=== PATIENT | male | born 1975 | race Caucasian/White ===

== ENCOUNTER 2017-01-30 12:36 | Inpatient (IN) | payer OTHER ==
[2017-01-30 15:29] VITALS: BMI 32.8
[2017-01-30] MEDS ORDERED: IBUPROFEN 400 MG TABLET (FP) PO PRN (18:22)
[2017-01-30] MEDS ORDERED: chlordiazePOXIDE HCL 25 MG CAPSULE PO PRN (18:22)
[2017-01-30] MEDS ORDERED: MENTHOL/PHENOL 1 EACH UD MM PRN (18:22)
[2017-01-30] MEDS ORDERED: MAGNESIUM CITRATE 300 ML BOTTLE PO PRN (18:22)
[2017-01-30] MEDS ORDERED: P-EPHED 60MG/TRIPROLIDI 2.5MG TABLET PO PRN (18:22)
[2017-01-30] MEDS ORDERED: MAG HYDROX/AL HYDROX/SIMETH 30 ML UNIT-DOSE CUP PO PRN (18:22)
[2017-01-30] MEDS ORDERED: MAGNESIUM HYDROX 2400MG/30ML ORAL SUSPENSION 30 ML CUP PO PRN (18:22)
[2017-01-30] MEDS ORDERED: ACETAMINOPHEN 325 MG TABLET (FP) PO PRN (18:22)
[2017-01-30] MEDS ORDERED: LOPERAMIDE HCL 2 MG CAPSULE PO PRN (18:22)
[2017-01-30] MEDS ORDERED: NICOTINE POLACRILEX 2 MG GUM BC PRN (18:22)
[2017-01-30] MEDS ORDERED: guaiFENesin/D-METHORPHAN HB 10 ML UNIT-DOSE CUPS PO PRN (18:22)
[2017-01-30] MEDS ORDERED: hydrOXYzine PAMOATE 50 MG CAPSULE (FP) PO PRN (18:22)
--- NOTE | 2017-01-30 18:22 | HP ---
CIWA Score - CIWA Score Nausea/Vomitin Muscle Tremors: 3 Anxiety: 3 Agitation: 3 Paroxysmal Sweats: 3 Orientation: 0-Oriented Tacttile Disturbances: 1-Very Mild Itch/Numbness Auditory Disturbances: 0-None Visual Disturbances: 0-None Headache: 1-Very Mild CIWA-Ar Total Score: 17 Admission [facility] Chief Complaint: alcohol withdrawal sx Allergies/Adverse Reactions: Allergies Allergy/AdvReac Type Severity Reaction Status Date / Time No Known Allergies Allergy Verified 01/30/17 16:38 History of Present Illness: 41 yo w h/o chronic opioid dependence on suboxone for many years 16mg daily, but has been recently decreasing dose from 16mg to 12mg, did nto take medication today. started drinking heavily and injecting cocaine, daily use 1 month, brought him in fro treatment. when he does not drink has Alcohol withdrawal sx - no h/o sieuzres, no DTS. PMHX Hep c+, treated and cleared virus , anxiety, depression and insomnia. thirsty. no suicidal ideation or suicide attempts no h/o OD Exam Limitations: No Limitations - Ebola screening Have you traveled outside of the country in the last 21 days: No (N) Have you had contact with anyone from an Ebola affected area: No Have you been sick,other than usual withdrawal symptoms: No Do you have a fever: No - Review of Systems Constitutional: Chills, Diaphoresis, Changes in sleep, Weakness, Unintentional Wgt. Loss EENT: reports: No Symptoms Reported Respiratory: reports: No Symptoms reported Cardiac: reports: No Symptoms Reported GI: reports: Constipated, Nausea, Poor Appetite, Poor Fluid Intake, Indigestion , Abdominal cramping : reports: No Symptoms Reported Musculoskeletal: reports: No Symptoms Reported Integumentary: reports: Flushing, Sweating Neuro: reports: Numbness, Paresthesia, Tingling, Tremors, Weakness Endocrine: reports: Flushing, Increased Thirst Hematology: reports: No Symptoms Reported Psychiatric: reports: Judgement Intact, Mood/Affect Appropiate, Orientated x3, Anxious, Depressed Other Systems: Reviewed and Negative Patient History - Patient Medical History Hx Anemia: No Hx Asthma: No Hx Chronic Obstructive Pulmonary Disease (COPD): No Hx Cancer: No Hx Cardiac Disorders: No Hx Congestive Heart Failure: No Hx Hypertension: No Hx Hypercholesterolemia: No Hx Pacemaker: No HX Cerebrovascular Accident: No Hx Seizures: No Hx Dementia: No Hx Diabetes: No Hx Gastrointestinal Disorders: No Hx Liver Disease: No Hx Genitourinary Disorders: No Hx Sexually Transmitted Disorders: No Hx Renal Disease (ESRD): No Hx Thyroid Disease: No Hx Human Immunodeficiency Virus (HIV): No Hx Hepatitis C: Yes (cleared virus with treeatment) Hx Depression: Yes Hx Suicide Attempt: No Hx Bipolar Disorder: No Hx Schizophrenia: No - Patient Surgical History Past Surgical History: No Hx Neurologic Surgery: No Hx Cataract Extraction: No Hx Cardiac Surgery: No Hx Lung Surgery: No Hx Breast Surgery: No Hx Breast Biopsy: No Hx Abdominal Surgery: No Hx Appendectomy: No Hx Cholecystectomy: No Hx Genitourinary Surgery: No Hx Section: No Hx Orthopedic Surgery: No Anesthesia Reaction: No - PPD History Previous Implant?: Yes Documented Results: Negative w/o proof PPD to be Administered?: Yes - Reproductive History Patient is a Female of Child Bearing Age (11 -55 yrs old): No Patient : No - Smoking Cessation Smoking history: Current every day smoker Have you smoked in the past 12 months: Yes Aproximately how many cigarettes per day: 3 Hx Chewing Tobacco Use: No Initiated information on smoking cessation: Yes 'Breaking Loose' booklet given: 01/30/17 - Substance & Tx. History Hx Alcohol Use: Yes Hx Substance Use: Yes Substance Use Type: Alcohol, Cocaine, Heroin, Opiates Hx Substance Use Treatment: Yes (on suboxone) - Substances Abused Alcohol Route: Oral Frequency: Daily Amount used: LIQUOR- 3 PINTS, BEER- 1 SIX PACK Age of first use: 25 Date of Last Use: 01/29/17 Cocaine Route: Injection Frequency: Daily Amount used: 8 BAGS Age of first use: 30 Date of Last Use: 01/30/17 Family Disease History - Family Disease History Family Disease History: Diabetes: Father (alcoholic), Heart Disease: Father, Other: Father Admission Physical Exam BHS - Vital Signs Vital Signs: Vital Signs - 24 hr 01/30/17 15:24 Temperature 97.0 F L Pulse Rate 78 Respiratory 20 Rate Blood Pressure 132/73 - Physical General Appearance: Yes: Nourished, Appropriately Dressed, Disheveled, Mild Distress, Tremorous, Irritable, Sweating, Anxious HEENTM: Yes: EOMI, Hearing grossly Normal, Normal ENT Inspection, Normocephalic , Normal Voice, TIARA, Pharynx Normal Respiratory: Yes: Within Normal Limits, Chest Non-Tender, Lungs Clear, Normal Breath Sounds, No Respiratory Distress, No Accessory Muscle Use Neck: Yes: Within Normal Limits, No masses,lesions,Nodules, Supple, Trachea in good position Breast: Yes: Breast Exam Deferred Cardiology: Yes: Within Normal Limits, Regular Rhythm, Regular Rate, S1, S2 Abdominal: Yes: Normal Bowel Sounds, Non Tender, Flat, Soft, Increased Bowel Sounds Genitourinary: Yes: Within Normal Limits Back: Yes: Within Normal Limits, Normal Inspection Musculoskeletal: Yes: Within Normal Limits, full range of Motion, Gait Steady, Pelvis Stable Extremities: Yes: Normal Capillary Refill, Normal Range of Motion, Non-Tender, Tremors Neurological: Yes: credit card associate II-XII NML intact, Fully Oriented, Alert, Motor Strength 5/5, Depressed Affect Integumentary: Yes: Normal Color, Warm, Diaphoresis, Track Anderson (cocaine injection left anteror cubital fossa, erythema and swelling no abscess noted, mild cellultis) Lymphatic: Yes: Within Normal Limits - Addiitonal Findings: withdrawal sx - Diagnostic (1) Opioid dependence on agonist therapy Current Visit: Yes Status: Acute (2) Cellulitis Current Visit: Yes Status: Acute (3) Alcohol dependence with uncomplicated withdrawal Current Visit: Yes Status: Acute (4) Cocaine dependence Current Visit: Yes Status: Acute (5) Depression Current Visit: Yes Status: Acute (6) Dehydration Current Visit: Yes Status: Acute Cleared for Admission [facility] - Detox or Rehab [facility] Level of Care: Medically Managed Detox Regimen/Protocol: Librium [facility] Breath Alcohol Content Breath Alcohol Content: 0 Urine Drug Screen - Results Drug Screen Negative: No Urine Drug Screen Results: JUAN-Cocaine
[2017-01-30] MEDS ORDERED: chlordiazePOXIDE HCL 25 MG CAPSULE PO ONE (19:00)
[2017-01-30] MEDS: BUPRENORPHINE HCL/NALOXONE 12 MG-3 MG SL FILM PACKET SL SCH (19:07)
[2017-01-30] MEDS: NICOTINE 14 MG/24 HOURS TOPICAL PATCH TD SCH (19:10)
[2017-01-30] MEDS: chlordiazePOXIDE HCL 25 MG CAPSULE PO SCH (22:26)
[2017-01-30] MEDS: THIAMINE HCL 100 MG TABLET (FP) PO SCH (22:26)
[2017-01-30] MEDS: CEPHALEXIN MONOHYDRATE 500 MG CAPSULE (UD) PO SCH (22:26)
[2017-01-30 23:16] LABS: URINE APPEARANCE CLEAR; URINE BILIRUBIN NEGATIVE (NEGATIVE); URINE BLOOD NEGATIVE (NEGATIVE); URINE COLOR LTYELLOW; URINE GLUCOSE (UA) NEGATIVE (NEGATIVE); URINE KETONE NEGATIVE (NEGATIVE); URINE LEUK ESTERASE NEGATIVE (NEGATIVE); URINE NITRITE NEGATIVE (NEGATIVE); URINE PROTEIN NEGATIVE (NEGATIVE); URINE UROBILINOGEN NEGATIVE mg/dL (0.2-1.0)
[2017-01-31] MEDS: chlordiazePOXIDE HCL 25 MG CAPSULE PO SCH ×4 (05:57→22:14)
[2017-01-31 09:36] LABS: MCHC 34.3 g/dl (32.0-35.9); MEAN CELL VOLUME 87.5 fl (80-96); MEAN PLT VOLUME 7.9 fl (7.5-11.1); PLATELET COUNT 265 K/MM3 (134-434); RDW 12.6 % (11.9-15.9); WHITE BLOOD COUNT 3.9 K/mm3 (4.0-10.0)
[2017-01-31 10:05] LABS: ALBUMIN 3.3 g/dl (3.4-5.0); ALK PHOS 55 U/L (45-117); ANION GAP 6 (8-16); BILIRUBIN,TOTAL 0.3 mg/dL (0.2-1.0); CALCIUM 9.1 mg/dL (8.5-10.1); CO2 31 mmol/L (21-32); GLUCOSE,RANDOM 85 mg/dL (74-106); SGOT/AST 17 U/L (15-37); SGPT/ALT 44 U/L (12-78); TOT PROT 6.9 g/dl (6.4-8.2)
[2017-01-31] MEDS: CEPHALEXIN MONOHYDRATE 500 MG CAPSULE (UD) PO SCH ×2 (10:30→22:14)
[2017-01-31] MEDS: PRENATAL VITAMINS W/ FOLIC ACID TABLET (FP) PO SCH (10:30)
[2017-01-31] MEDS: NICOTINE 14 MG/24 HOURS TOPICAL PATCH TD SCH (10:30)
[2017-01-31] MEDS: BUPRENORPHINE HCL/NALOXONE 12 MG-3 MG SL FILM PACKET SL SCH (10:30)
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
[2017-01-31 10:57] LABS: SICKLE CELL SCREEN NEGATIVE (NEGATIVE)
[2017-01-31] MEDS ORDERED: ONDANSETRON *ODT* 4 MG TABLET SL PRN (12:01)
[2017-01-31 12:32] LABS: URINE LEUK ESTERASE Negative (NEGATIVE)
[2017-01-31 12:47] LABS: HIV 1 & 2 AB NEGATIVE; HIV 1 AGp24 NEGATIVE
--- NOTE | 2017-01-31 16:01 | PN ---
S CIWA - CIWA Score Nausea/Vomitin Muscle Tremors: 4-Moderate,w/Arms Extend Anxiety: 3 Agitation: 3 Paroxysmal Sweats: 3 Orientation: 0-Oriented Tacttile Disturbances: 0-None Auditory Disturbances: 2-Mild Harshness/Frighten Visual Disturbances: 1-Very Mild Sensitivity Headache: 0-None Present CIWA-Ar Total Score: 19 BHS Progress Note (SOAP) Subjective: Tremors, Body Aches, Nausea, Sweating. Objective: PT. A & O X 3, OBSERVED AMBULATING ON UNIT. NO ACUTE DISTRESS. 01/31/17 16:00 Vital Signs Temperature 97.2 F L 01/31/17 15:06 Pulse Rate 80 01/31/17 15:06 Respiratory Rate 18 01/31/17 15:06 Blood Pressure 135/79 01/31/17 15:06 O2 Sat by Pulse Oximetry (%) Laboratory Tests 01/30/17 01/31/17 01/31/17 21:07 07:50 07:50 WBC 3.9 L RBC 4.63 Hgb 13.9 Hct 40.5 MCV 87.5 MCH 30.0 MCHC 34.3 RDW 12.6 Plt Count 265 MPV 7.9 Sickle Cell Screen Negative Sodium Potassium Chloride Carbon Dioxide Anion Gap BUN Creatinine Creat Clearance w eGFR Random Glucose Calcium Total Bilirubin AST ALT Alkaline Phosphatase Total Protein Albumin Urine Color Ltyellow Urine Appearance Clear Urine pH 6.0 Ur Specific [place] 1.011 Urine Protein Negative Urine Glucose (UA) Negative Urine Ketones Negative Urine Blood Negative Urine Nitrite Negative Urine Bilirubin Negative Urine Urobilinogen Negative Ur Leukocyte Esterase Negative RPR Titer HIV 1&2 Antibody Screen Negative HIV P24 Antigen Negative 01/31/17 01/31/17 07:50 07:50 WBC RBC Hgb Hct MCV MCH MCHC RDW Plt Count MPV Sickle Cell Screen Sodium 141 Potassium 4.0 Chloride 104 Carbon Dioxide 31 Anion Gap 6 L BUN 18 Creatinine 1.0 Creat Clearance w eGFR > 60 Random Glucose 85 Calcium 9.1 Total Bilirubin 0.3 AST 17 ALT 44 Alkaline Phosphatase 55 Total Protein 6.9 Albumin 3.3 L Urine Color Urine Appearance Urine pH Ur Specific [place] Urine Protein Urine Glucose (UA) Urine Ketones Urine Blood Urine Nitrite Urine Bilirubin Urine Urobilinogen Ur Leukocyte Esterase RPR Titer Nonreactive HIV 1&2 Antibody Screen HIV P24 Antigen LABS NOTED. Assessment: 01/31/17 16:01 WITHDRAWAL SYMPTOMS. Plan: CONTINUE DETOX.
[2017-01-31] MEDS ORDERED: QUEtiapine FUMARATE 200 MG TABLET PO SCH (22:00)
[2017-01-31] MEDS: QUEtiapine FUMARATE 300 MG TABLET PO SCH (22:14)
[2017-01-31] MEDS: THIAMINE HCL 100 MG TABLET (FP) PO SCH (22:15)
[2017-02-01] MEDS: chlordiazePOXIDE HCL 25 MG CAPSULE PO SCH ×3 (06:09→17:58)
--- NOTE | 2017-02-01 08:49 | EKG ---
Test Reason : Blood Pressure : / mmHG Vent. Rate : 075 BPM Atrial Rate : 075 BPM P-R Int : 126 ms QRS Dur : 084 ms QT Int : 408 ms P-R-T Axes : 073 052 023 degrees QTc Int : 455 ms NORMAL SINUS RHYTHM MINIMAL VOLTAGE CRITERIA FOR LVH, MAY BE NORMAL VARIANT BORDERLINE ECG NO PREVIOUS ECGS AVAILABLE Confirmed by EMMETT COYNE MD ([id number]) on 02/01/2017 8:48:29 AM Referred By: Confirmed By:EMMETT COYNE MD
--- NOTE | 2017-02-01 08:55 | EKG ---
Test Reason : Blood Pressure : / mmHG Vent. Rate : 053 BPM Atrial Rate : 053 BPM P-R Int : 126 ms QRS Dur : 088 ms QT Int : 452 ms P-R-T Axes : 073 060 029 degrees QTc Int : 424 ms SINUS BRADYCARDIA WITH SINUS ARRHYTHMIA MINIMAL VOLTAGE CRITERIA FOR LVH, MAY BE NORMAL VARIANT WITH REPOLARIZATION ABNORMALITY WHEN COMPARED WITH ECG OF 30-JAN-2017 20:17, NO SIGNIFICANT CHANGE WAS FOUND Confirmed by STANFORD VIEIRA, EMMETT (2016) on 02/01/2017 8:54:41 AM Referred By: Confirmed By:EMMETT COYNE MD
[2017-02-01] MEDS: PRENATAL VITAMINS W/ FOLIC ACID TABLET (FP) PO SCH (10:22)
[2017-02-01] MEDS: BENZTROPINE MESYLATE 1 MG TABLET (FP) PO SCH (10:22)
[2017-02-01] MEDS: SERTRALINE HCL 50 MG TABLET (FP) PO SCH (10:22)
[2017-02-01] MEDS: BUPRENORPHINE HCL/NALOXONE 12 MG-3 MG SL FILM PACKET SL SCH (10:22)
[2017-02-01] MEDS: CEPHALEXIN MONOHYDRATE 500 MG CAPSULE (UD) PO SCH ×2 (10:22→22:36)
[2017-02-01] MEDS: NICOTINE 14 MG/24 HOURS TOPICAL PATCH TD SCH (10:23)
--- NOTE | 2017-02-01 16:51 | PN ---
S CIWA - CIWA Score Nausea/Vomitin Muscle Tremors: 3 Anxiety: 3 Agitation: 3 Paroxysmal Sweats: 3 Orientation: 0-Oriented Tacttile Disturbances: 1-Very Mild Itch/Numbness Auditory Disturbances: 0-None Visual Disturbances: 0-None Headache: 1-Very Mild CIWA-Ar Total Score: 17 S Progress Note (SOAP) Subjective: Tremor, interrupted sleep, nausea Objective: 02/01/17 16:50 Last Vital Signs Temp Pulse Resp BP Pulse Ox 97.7 F 90 18 149/80 02/01/17 14:27 02/01/17 14:27 02/01/17 14:27 02/01/17 14:27 Laboratory Tests 01/30/17 01/31/17 01/31/17 21:07 07:50 07:50 WBC 3.9 L RBC 4.63 Hgb 13.9 Hct 40.5 MCV 87.5 MCH 30.0 MCHC 34.3 RDW 12.6 Plt Count 265 MPV 7.9 Sickle Cell Screen Negative Sodium Potassium Chloride Carbon Dioxide Anion Gap BUN Creatinine Creat Clearance w eGFR Random Glucose Calcium Total Bilirubin AST ALT Alkaline Phosphatase Total Protein Albumin Urine Color Ltyellow Urine Appearance Clear Urine pH 6.0 Ur Specific [place] 1.011 Urine Protein Negative Urine Glucose (UA) Negative Urine Ketones Negative Urine Blood Negative Urine Nitrite Negative Urine Bilirubin Negative Urine Urobilinogen Negative Ur Leukocyte Esterase Negative RPR Titer HIV 1&2 Antibody Screen Negative HIV P24 Antigen Negative 01/31/17 01/31/17 07:50 07:50 WBC RBC Hgb Hct MCV MCH MCHC RDW Plt Count MPV Sickle Cell Screen Sodium 141 Potassium 4.0 Chloride 104 Carbon Dioxide 31 Anion Gap 6 L BUN 18 Creatinine 1.0 Creat Clearance w eGFR > 60 Random Glucose 85 Calcium 9.1 Total Bilirubin 0.3 AST 17 ALT 44 Alkaline Phosphatase 55 Total Protein 6.9 Albumin 3.3 L Urine Color Urine Appearance Urine pH Ur Specific [place] Urine Protein Urine Glucose (UA) Urine Ketones Urine Blood Urine Nitrite Urine Bilirubin Urine Urobilinogen Ur Leukocyte Esterase RPR Titer Nonreactive HIV 1&2 Antibody Screen HIV P24 Antigen Labs noted Assessment: 02/01/17 16:50 Withdrawal symptoms Plan: Continue detox
[2017-02-01] MEDS: THIAMINE HCL 100 MG TABLET (FP) PO SCH (22:36)
[2017-02-01] MEDS: QUEtiapine FUMARATE 300 MG TABLET PO SCH (22:36)
[2017-02-01] MEDS: chlordiazePOXIDE 5 MG CAPSULE PO SCH (22:36)
[2017-02-02] MEDS: chlordiazePOXIDE 5 MG CAPSULE PO SCH ×3 (05:53→17:20)
[2017-02-02] MEDS: PRENATAL VITAMINS W/ FOLIC ACID TABLET (FP) PO SCH (10:40)
[2017-02-02] MEDS: SERTRALINE HCL 50 MG TABLET (FP) PO SCH (10:40)
[2017-02-02] MEDS: BENZTROPINE MESYLATE 1 MG TABLET (FP) PO SCH (10:40)
[2017-02-02] MEDS: NICOTINE 14 MG/24 HOURS TOPICAL PATCH TD SCH (10:40)
[2017-02-02] MEDS: CEPHALEXIN MONOHYDRATE 500 MG CAPSULE (UD) PO SCH ×2 (10:40→22:26)
[2017-02-02] MEDS: BUPRENORPHINE HCL/NALOXONE 12 MG-3 MG SL FILM PACKET SL SCH (10:40)
--- NOTE | 2017-02-02 13:51 | PN ---
BHS Progress Note (SOAP) Subjective: C/O TREMORS,SWEATS,"BAD DREAMS-NOT SPECIFIC", INTERMITTENT SLEEP. Objective: 02/02/17 13:51 Vital Signs Temperature 98.4 F 02/02/17 09:37 Pulse Rate 92 H 02/02/17 09:37 Respiratory Rate 18 02/02/17 09:37 Blood Pressure 143/77 02/02/17 09:37 O2 Sat by Pulse Oximetry (%) Laboratory Last Values WBC 3.9 K/mm3 (4.0-10.0) L 01/31/17 07:50 RBC 4.63 M/mm3 (4.00-5.60) 01/31/17 07:50 Hgb 13.9 GM/dL (11.7-16.9) 01/31/17 07:50 Hct 40.5 % (35.4-49) 01/31/17 07:50 MCV 87.5 fl (80-96) 01/31/17 07:50 MCH 30.0 pg (25.7-33.7) 01/31/17 07:50 MCHC 34.3 g/dl (32.0-35.9) 01/31/17 07:50 RDW 12.6 % (11.9-15.9) 01/31/17 07:50 Plt Count 265 K/MM3 (134-434) 01/31/17 07:50 MPV 7.9 fl (7.5-11.1) 01/31/17 07:50 Sickle Cell Screen Negative (NEGATIVE) 01/31/17 07:50 Sodium 141 mmol/L (136-145) 01/31/17 07:50 Potassium 4.0 mmol/L (3.5-5.1) 01/31/17 07:50 Chloride 104 mmol/L (98-107) 01/31/17 07:50 Carbon Dioxide 31 mmol/L (21-32) 01/31/17 07:50 Anion Gap 6 (8-16) L 01/31/17 07:50 BUN 18 mg/dL (7-18) 01/31/17 07:50 Creatinine 1.0 mg/dL (0.7-1.3) 01/31/17 07:50 Creat Clearance w eGFR > 60 (>60) 01/31/17 07:50 Random Glucose 85 mg/dL (74-106) 01/31/17 07:50 Calcium 9.1 mg/dL (8.5-10.1) 01/31/17 07:50 Total Bilirubin 0.3 mg/dL (0.2-1.0) 01/31/17 07:50 AST 17 U/L (15-37) 01/31/17 07:50 ALT 44 U/L (12-78) 01/31/17 07:50 Alkaline Phosphatase 55 U/L (45-117) 01/31/17 07:50 Total Protein 6.9 g/dl (6.4-8.2) 01/31/17 07:50 Albumin 3.3 g/dl (3.4-5.0) L 01/31/17 07:50 Urine Color Ltyellow 01/30/17 21:07 Urine Appearance Clear 01/30/17 21:07 Urine pH 6.0 (5.0-8.0) 01/30/17 21:07 Ur Specific [place] 1.011 (1.001-1.035) 01/30/17 21:07 Urine Protein Negative (NEGATIVE) 01/30/17 21:07 Urine Glucose (UA) Negative (NEGATIVE) 01/30/17 21:07 Urine Ketones Negative (NEGATIVE) 01/30/17 21:07 Urine Blood Negative (NEGATIVE) 01/30/17 21:07 Urine Nitrite Negative (NEGATIVE) 01/30/17 21:07 Urine Bilirubin Negative (NEGATIVE) 01/30/17 21:07 Urine Urobilinogen Negative mg/dL (0.2-1.0) 01/30/17 21:07 Ur Leukocyte Esterase Negative (NEGATIVE) 01/30/17 21:07 RPR Titer Nonreactive (NONREACTIVE) 01/31/17 07:50 HIV 1&2 Antibody Screen Negative 01/31/17 07:50 HIV P24 Antigen Negative 01/31/17 07:50 Assessment: 02/02/17 13:51 WITHDRAWAL SX Plan: CONTINUE DETOX
[2017-02-02] MEDS: chlordiazePOXIDE HCL 10 MG CAPSULE PO SCH (22:26)
[2017-02-02] MEDS: THIAMINE HCL 100 MG TABLET (FP) PO SCH (22:26)
[2017-02-02] MEDS: QUEtiapine FUMARATE 300 MG TABLET PO SCH (22:26)
[2017-02-03] MEDS: chlordiazePOXIDE HCL 10 MG CAPSULE PO SCH (06:06)
[2017-02-03 09:18] VITALS: BP 135/87; PULSE 76; TEMP 97.2
[2017-02-03] MEDS: SERTRALINE HCL 50 MG TABLET (FP) PO SCH (09:28)
[2017-02-03] MEDS: CEPHALEXIN MONOHYDRATE 500 MG CAPSULE (UD) PO SCH (09:28)
[2017-02-03] MEDS: NICOTINE 14 MG/24 HOURS TOPICAL PATCH TD SCH (09:28)
[2017-02-03] MEDS: BUPRENORPHINE HCL/NALOXONE 12 MG-3 MG SL FILM PACKET SL SCH (09:28)
[2017-02-03] MEDS: BENZTROPINE MESYLATE 1 MG TABLET (FP) PO SCH (09:28)
[2017-02-03] MEDS: PRENATAL VITAMINS W/ FOLIC ACID TABLET (FP) PO SCH (09:28)
--- NOTE | 2017-02-03 15:16 | DS ---
[facility] Detox Discharge Summary Admission Date: 01/30/17 Discharge Date: 02/03/17 - History Present History: Alcohol Dependence, Cocaine Dependence, Opioid Dependence Additional Comments: PATIENT GOING HOME SO THAT HE MAY RETURN TO WORK. PATIENT REPORTS THAT HE WILL RESUME OUTPATIENT SUPPORT GROUP MEETINGS ONCE HE SETTLES IN BACK AT HOME. PATIENT ALSO ADVISED TO FOLLOW-UP WITH MEDICAL PROVIDER DR. DUDLEY ( [place], [place], [place] FOR FOLLOW-UP ASSESSMENT FOR HISTORY OF SUBOXONE MAINTENANCE THERAPY. PATIENT WAS DISCHARGED FROM DETOX UNIT IN STABLE MEDICAL CONDITION. Pertinent Past History: Hep C (treated), Depression, Suboxone Maintenance Therapy, Dehydration, Cellulitis, Nicotine Dependence. - Physical Exam Results Vital Signs: Vital Signs Temperature 97.2 F L 02/03/17 09:18 Pulse Rate 76 02/03/17 09:18 Respiratory Rate 18 02/03/17 09:18 Blood Pressure 135/87 02/03/17 09:18 O2 Sat by Pulse Oximetry (%) Pertinent Admission Physical Exam Findings: WITHDRAWAL SYMPTOMS. Laboratory Tests 01/30/17 01/31/17 01/31/17 21:07 07:50 07:50 WBC 3.9 L RBC 4.63 Hgb 13.9 Hct 40.5 MCV 87.5 MCH 30.0 MCHC 34.3 RDW 12.6 Plt Count 265 MPV 7.9 Sickle Cell Screen Negative Sodium Potassium Chloride Carbon Dioxide Anion Gap BUN Creatinine Creat Clearance w eGFR Random Glucose Calcium Total Bilirubin AST ALT Alkaline Phosphatase Total Protein Albumin Urine Color Ltyellow Urine Appearance Clear Urine pH 6.0 Ur Specific [place] 1.011 Urine Protein Negative Urine Glucose (UA) Negative Urine Ketones Negative Urine Blood Negative Urine Nitrite Negative Urine Bilirubin Negative Urine Urobilinogen Negative Ur Leukocyte Esterase Negative RPR Titer HIV 1&2 Antibody Screen Negative HIV P24 Antigen Negative 01/31/17 01/31/17 07:50 07:50 WBC RBC Hgb Hct MCV MCH MCHC RDW Plt Count MPV Sickle Cell Screen Sodium 141 Potassium 4.0 Chloride 104 Carbon Dioxide 31 Anion Gap 6 L BUN 18 Creatinine 1.0 Creat Clearance w eGFR > 60 Random Glucose 85 Calcium 9.1 Total Bilirubin 0.3 AST 17 ALT 44 Alkaline Phosphatase 55 Total Protein 6.9 Albumin 3.3 L Urine Color Urine Appearance Urine pH Ur Specific [place] Urine Protein Urine Glucose (UA) Urine Ketones Urine Blood Urine Nitrite Urine Bilirubin Urine Urobilinogen Ur Leukocyte Esterase RPR Titer Nonreactive HIV 1&2 Antibody Screen HIV P24 Antigen LABS NOTED. - Treatment Hospital Course: Detox Protocol Followed, Detoxed Safely, Responded well, Discharged Condition Good Patient has Accepted a Rehab Referral to: PT WILL GOING HOME TO RETURN TO WORK, WILL ATTEND OUTPATIENT SUPPORT GROUP. - Medication Discharge Medications: Ambulatory Orders Quetiapine Fumarate [Seroquel -] 200 mg PO HS #30 tab 01/31/17 - Diagnosis (1) Alcohol dependence with uncomplicated withdrawal Status: Acute (2) Cocaine dependence Status: Acute Qualifiers: Substance use status: uncomplicated Qualified Code(s): F14.20 - Cocaine dependence, uncomplicated (3) Dehydration Status: Acute (4) Opioid dependence on agonist therapy Status: Chronic (5) Cellulitis Status: Acute Qualifiers: Site of cellulitis: unspecified site Qualified Code(s): L03.90 - Cellulitis , unspecified (6) Depression Status: Acute Qualifiers: Depression Type: unspecified Qualified Code(s): F32.9 - Major depressive disorder, single episode, unspecified (7) Hepatitis C Status: Chronic Qualifiers: Viral hepatitis chronicity: chronic Hepatic coma status: without hepatic coma Qualified Code(s): B18.2 - Chronic viral hepatitis C (8) MDD (major depressive disorder), recurrent episode Status: Chronic Qualifiers: Major depression episode severity: unspecified Qualified Code(s): F33.9 - Major depressive disorder, recurrent, unspecified (9) Nicotine dependence Status: Chronic Qualifiers: Nicotine product type: cigarettes Substance use status: in withdrawal Qualified Code(s): F17.213 - Nicotine dependence, cigarettes, with withdrawal - AMA Did Patient Leave Against Medical Advice: No
== END 2017-02-03 10:15 | disposition home or self-care (01) | DRG 774 ==
LOC: YASAS 12:36 → Y3N 17:42
PROVIDERS: ADMIT Internal Medicine; ATTEND Internal Medicine
PROC: HZ2ZZZZ Detoxification Services for Substance Abuse Treatment (ICD-10-PCS; principal; 2017-01-30)
DX: F10.230 Alcohol dependence with withdrawal, uncomplicated (principal); F14.20 Cocaine dependence, uncomplicated; F17.210 Nicotine dependence, cigarettes, uncomplicated; F25.0 Schizoaffective disorder, bipolar type; F32.9 Major depressive disorder, single episode, unspecified; L03.114 Cellulitis of left upper limb; E86.0 Dehydration; B18.2 Chronic viral hepatitis C; Z91.5 Personal history of self-harm
CPT/HCPCS: 36415; 80053; 81003; 85027; 85660; 86593; 87389; 93005; 93010

== ENCOUNTER 2017-08-08 12:54 | Emergency (ER) | payer OTHER ==
[2017-08-08 13:19] VITALS: BP 125/74; PULSE 62; TEMP 96.8; BMI 29.2
--- NOTE | 2017-08-08 13:58 | PDOC ---
History of Present Illness - General Chief Complaint: Injury Stated Complaint: GLASS ON FOOT Time Seen by Provider: 08/08/17 13:45 History Source: Patient - History of Present Illness Occurred: reports: other Lower Extremity Pain Location: right: foot Past History - Past Medical History Allergies/Adverse Reactions: Allergies Allergy/AdvReac Type Severity Reaction Status Date / Time No Known Allergies Allergy Verified 08/08/17 13:19 Home Medications: Ambulatory Orders Benztropine Mesylate [Cogentin -] 1 mg PO DAILY 08/07/17 Buprenorphine/Naloxone [Suboxone 8Mg/2Mg Sl Film -] 1 each SL BID 08/07/17 Bupropion HCl [Bupropion HCl Sr] 150 mg PO DAILY 08/07/17 Quetiapine Fumarate [Seroquel -] 300 mg PO HS 08/07/17 Sertraline HCl [Zoloft] 100 mg PO DAILY 08/07/17 Anemia: No Asthma: No Cancer: No Cardiac Disorders: No CVA: No COPD: No CHF: No Dementia: No Diabetes: No GI Disorders: No Disorders: No HTN: No Hypercholesterolemia: No Kidney Stones: No Liver Disease: No Psychiatric Problems: Yes (etoh and cocaine abuse) Seizures: No Thyroid Disease: No - Surgical History Abdominal Surgery: No Appendectomy: No Cardiac Surgery: No Cholecystectomy: No Lung Surgery: No Neurologic Surgery: No Orthopedic Surgery: No - Reproductive History Testicular Surgery: No - Suicide/Smoking/Psychosocial Hx Smoking History: Current every day smoker Have you smoked in the past 12 months: Yes Number of Cigarettes Smoked Daily: 20 Information on smoking cessation initiated: No 'Breaking Loose' booklet given: 08/07/17 Hx Alcohol Use: No Drug/Substance Use Hx: No Substance Use Type: Alcohol, Cocaine Hx Substance Use Treatment: Yes Review of Systems - Review of Systems Constitutional: No: Chills, Fever *Physical Exam - Vital Signs Last Vital Signs Temp Pulse Resp BP Pulse Ox 96.8 F L 62 18 125/74 100 08/08/17 12:55 08/08/17 12:55 08/08/17 12:55 08/08/17 12:55 08/08/17 12:55 - Physical Exam General Appearance: Yes: Appropriately Dressed. No: Apparent Distress HEENT: positive: Normal Voice Neck: positive: Supple Respiratory/Chest: negative: Respiratory Distress Musculoskeletal: positive: Other (hyperkeratotic papule w/ central core to plantar aspect near base of R 5th metatarsal c/w corn) Integumentary: positive: Dry, Warm Neurologic: positive: Alert, Normal Mood/Affect ED Treatment Course - RADIOLOGY Radiology Studies Ordered: Category Date Time Status FOOT-RIGHT [RAD] Stat Radiology 08/08/17 13:45 Ordered Medical Decision Making - Medical Decision Making 08/08/17 13:53 41 yo M, polysubstance abuse, HCV, smoker, currently in detox at [facility] and sent over for evaluation of R foot pain x 1 month Pt denies any injuries to me but there is a report from [facility] that pt states he might have stepped on glass 1 month ago. Pt well janis and stable w/ 1 discrete corn near base or R 5th metatarsal. Xray r/o fb and dc w/ podiatry f/u. 08/08/17 14:25 Xray neg for fb. Pt stable for dc back to [facility] *DC/Admit/Observation/Transfer Diagnosis at time of Disposition: Callus of foot - Discharge Dispostion Disposition: HOME Condition at time of disposition: Good - Referrals Referrals: Ruel Gomes MD [Staff Physician] - - Patient Instructions Printed Discharge Instructions: Calluses and Corns Additional Instructions: You have a foot corn and will need follow up with podiatry for treatment Your xray was negative for and foreign bodies Take tylenol as needed for pain - Post Discharge Activity
[2017-08-08] MEDS ORDERED: IBUPROFEN 400 MG TABLET (FP) PO ONE ×2 (13:59→14:06)
== END 2017-08-08 14:30 | disposition home or self-care (01) ==
LOC: JER 12:54
DX: L84 Corns and callosities (principal); F10.10 Alcohol abuse, uncomplicated; F14.10 Cocaine abuse, uncomplicated; F17.210 Nicotine dependence, cigarettes, uncomplicated; B18.2 Chronic viral hepatitis C
CPT/HCPCS: 73630-TC-RT-FY; 99282-25

== ENCOUNTER 2017-08-11 14:46 | Inpatient (IN) | payer OTHER ==
[2017-08-11] MEDS ORDERED: MAGNESIUM HYDROX 2400MG/30ML ORAL SUSPENSION 30 ML CUP PO PRN (15:14)
[2017-08-11] MEDS ORDERED: MAG HYDROX/AL HYDROX/SIMETH 30 ML UNIT-DOSE CUP PO PRN (15:14)
[2017-08-11] MEDS ORDERED: P-EPHED 60MG/TRIPROLIDI 2.5MG TABLET PO PRN (15:14)
[2017-08-11] MEDS ORDERED: MAGNESIUM CITRATE 300 ML BOTTLE PO PRN (15:14)
[2017-08-11] MEDS ORDERED: ACETAMINOPHEN 325 MG TABLET (FP) PO PRN (15:14)
[2017-08-11] MEDS ORDERED: hydrOXYzine PAMOATE 50 MG CAPSULE (FP) PO PRN (15:14)
[2017-08-11] MEDS ORDERED: guaiFENesin/D-METHORPHAN HB 10 ML UNIT-DOSE CUPS PO PRN (15:14)
[2017-08-11] MEDS ORDERED: LOPERAMIDE HCL 2 MG CAPSULE PO PRN (15:14)
[2017-08-11] MEDS ORDERED: NICOTINE POLACRILEX 4 MG GUM BUC PRN (15:14)
[2017-08-11] MEDS ORDERED: MENTHOL/PHENOL 1 EACH UD MM PRN (15:14)
--- NOTE | 2017-08-11 15:23 | HP ---
[facility] Rehab Assess/Revision - Admission History Admitted to Rehab from: [facility] [place] Date of Admission to Rehab: 08/11/17 - Findings Detox History & Physical reviewed: Yes Concur with findings: Yes Comments/Additional Findings: PT COMPLETED DETOX TODAY IN [address] [place] [address] AND REFERRED TO REHAB FOR AFTERCARE. PT WILL CONTINUE WITH SUBOXONE DIRECTED AND GO BACK TO PCP AT [facility] FOR CONTINUING CARE AFTER REHAB.
[2017-08-11] MEDS: NICOTINE 21 MG/24 HOURS TOPICAL PATCH TD SCH (18:47)
[2017-08-11] MEDS: QUEtiapine FUMARATE 300 MG TABLET PO SCH (21:12)
[2017-08-11] MEDS: BUPRENORPHINE/NALOXONE 8 MG/2 MG FILM PACKET SL SCH (21:12)
[2017-08-11] MEDS: THIAMINE HCL 100 MG TABLET (FP) PO SCH (21:12)
[2017-08-11] MEDS ORDERED: MELATONIN 5 MG TABLETS PO PRN (22:00)
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
[2017-08-12] MEDS ORDERED: BENZTROPINE MESYLATE 1 MG TABLET (FP) PO SCH (10:00)
[2017-08-12] MEDS ORDERED: SERTRALINE HCL 50 MG TABLET (FP) PO SCH (10:00)
[2017-08-12] MEDS: PRENATAL VITAMINS W/ FOLIC ACID TABLET (FP) PO SCH (10:12)
[2017-08-12] MEDS: BENZTROPINE MESYLATE 1 MG TABLET (FP) PO SCH (10:13)
[2017-08-12] MEDS: BUPRENORPHINE/NALOXONE 8 MG/2 MG FILM PACKET SL SCH ×2 (10:13→21:08)
[2017-08-12] MEDS: SERTRALINE HCL 50 MG TABLET (FP) PO SCH (10:13)
[2017-08-12] MEDS: NICOTINE 21 MG/24 HOURS TOPICAL PATCH TD SCH (10:13)
[2017-08-12] MEDS: QUEtiapine FUMARATE 300 MG TABLET PO SCH (21:08)
[2017-08-12] MEDS: THIAMINE HCL 100 MG TABLET (FP) PO SCH (21:08)
[2017-08-12] MEDS ORDERED: QUEtiapine FUMARATE 300 MG TABLET PO SCH (22:00)
[2017-08-13] MEDS: PRENATAL VITAMINS W/ FOLIC ACID TABLET (FP) PO SCH (10:01)
[2017-08-13] MEDS: BENZTROPINE MESYLATE 1 MG TABLET (FP) PO SCH (10:02)
[2017-08-13] MEDS: SERTRALINE HCL 50 MG TABLET (FP) PO SCH (10:02)
[2017-08-13] MEDS: NICOTINE 21 MG/24 HOURS TOPICAL PATCH TD SCH (10:02)
[2017-08-13] MEDS: BUPRENORPHINE/NALOXONE 8 MG/2 MG FILM PACKET SL SCH ×2 (10:02→21:20)
--- NOTE | 2017-08-13 14:27 | PN ---
Psychiatric Progress Note Vital Signs: Vital Signs Period Temp Pulse Resp BP Sys/Ruby Pulse Ox Last 24 Hr 98.3 F 72 18-18 127/78 Date of Session: 08/13/17 Chief Complaint:: Drowsiness HPI: Patient addressing Alcohol and Cocaine Dependence comorbid with Nicotine Dependence, MDD, Substance-induced Anxiety Disorder and Substance -induced Sleep Disorder ROS: Hep C Current Medications: Active Medications Generic Name Dose Route Start Last Admin Trade Name Freq PRN Reason Stop Dose Admin Acetaminophen 650 mg 08/11/17 15:14 Tylenol - PO Q4H PRN FEVER Al Hydroxide/Mg Hydroxide 30 ml 08/11/17 15:14 Mylanta Oral Suspension - PO Q6H PRN DYSPEPSIA Benztropine Mesylate 1 mg 08/12/17 10:00 08/13/17 10:02 Cogentin - PO 1 mg DAILY ADAN Administration Buprenorphine/Naloxone 1 each 08/11/17 22:00 08/13/17 10:02 Suboxone 8mg/2mg Sl Film - SL 1 each BID ADAN Administration Bupropion HCl 150 mg 08/12/17 10:00 08/13/17 10:01 Wellbutrin Xl - PO 150 mg DAILY ADAN Administration Eucalyptus/Menthol/Phenol/Sorbitol 1 each 08/11/17 15:14 Cepastat Lozenge - MM Q4H PRN SORE THROAT Guaifenesin 10 ml 08/11/17 15:14 Robitussin Dm - PO Q6H PRN COUGH Ibuprofen 400 mg 08/11/17 15:14 Motrin - PO Q6H PRN Pain Level 4-6 Loperamide HCl 4 mg 08/11/17 15:14 Imodium - PO Q6H PRN DIARRHEA Magnesium Citrate 300 ml 08/11/17 15:14 Citroma - PO Q48H PRN CONSTIPATION Magnesium Hydroxide 30 ml 08/11/17 15:14 Milk Of Magnesia - PO DAILY PRN CONSTIPATION Melatonin 5 mg 08/11/17 22:00 Melatonin PO HS PRN INSOMNIA Nicotine 21 mg 08/11/17 15:40 08/13/17 10:02 Nicoderm Patch - TD 21 mg DAILY ADAN Administration Nicotine Polacrilex 4 mg 08/11/17 15:14 Nicorette Gum - BUC Q2H PRN NICOTINE REPLACEMENT RX Multivit/Folic Acid/Iron 1 tab 08/12/17 10:00 08/13/17 10:01 Vitamins (Sjr) - PO 1 tab DAILY ADAN Administration Pseudoephedrine/Triprolidine 1 combo 08/11/17 15:14 Actifed - PO TID PRN NASAL CONGESTION Quetiapine Fumarate 200 mg 08/13/17 22:00 Seroquel - PO HS ADAN Sertraline HCl 100 mg 08/12/17 10:00 08/13/17 10:02 Zoloft - PO 100 mg DAILY ADAN Administration Thiamine HCl 100 mg 08/11/17 22:00 08/12/17 21:08 Vitamin B1 - PO 100 mg HS ADAN Administration Medication(s) Change(s): 1) Decrease Seroquel dosage to 200 mg po HS. 2) Discontinue Hydroxyzine pamoate Current Side Effect: Yes (drowsiness) Lab tests ordered: Yes Lab tests reviewed: Yes Provider note:: Requested by nursing staff to see patient because of drowsines. Patient appears somewhat slow in thinking and movement though he denies feeling drowsy. He is oriented x3 Total face to face time:: 15 Mental Status Exam - Mental Status Exam Alert and Oriented to: Time, Place, Person Cognitive Function: Fair Patient Appearance: Well Groomed Mood: Hopeful, Euthymic Affect: Appropriate Patient Behavior: Sedated (mildly) Speech Pattern: Clear Voice Loudness: Normal Thought Process: Intact Hallucinations: Denies Suicidal Ideation: Denies Homicidal Ideation: Denies Insight/Judgement: Fair Sleep: Fair Appetite: Good Muscle strength/Tone: Normal Gait/Station: Normal Psychiatric Treatment Plan - Problem List (1) Alcohol dependence Current Visit: Yes (2) Cocaine dependence Current Visit: No Qualifiers: Substance use status: uncomplicated Qualified Code(s): F14.20 - Cocaine dependence, uncomplicated (3) Nicotine dependence Current Visit: No Qualifiers: Nicotine product type: cigarettes Substance use status: in withdrawal Qualified Code(s): F17.213 - Nicotine dependence, cigarettes, with withdrawal (4) MDD (major depressive disorder), recurrent episode Current Visit: No Qualifiers: Major depression episode severity: unspecified Qualified Code(s): F33.9 - Major depressive disorder, recurrent, unspecified (5) Substance-induced anxiety disorder Current Visit: Yes (6) Substance-induced sleep disorder Current Visit: Yes (7) Hepatitis C Current Visit: No Qualifiers: Viral hepatitis chronicity: chronic Hepatic coma status: without hepatic coma Qualified Code(s): B18.2 - Chronic viral hepatitis C Initial treatment plan: 1) Discontinue Vistaril and Seroquel as currently ordered. 2) Start Sroquel 200 mg po HS. 3) Monitor progress
[2017-08-13] MEDS: QUEtiapine FUMARATE 200 MG TABLET PO SCH (21:19)
[2017-08-13] MEDS: THIAMINE HCL 100 MG TABLET (FP) PO SCH (21:19)
[2017-08-14] MEDS: IBUPROFEN 400 MG TABLET (FP) PO PRN (03:50)
[2017-08-14] MEDS: SERTRALINE HCL 50 MG TABLET (FP) PO SCH (09:53)
[2017-08-14] MEDS: PRENATAL VITAMINS W/ FOLIC ACID TABLET (FP) PO SCH (09:53)
[2017-08-14] MEDS: BUPRENORPHINE/NALOXONE 8 MG/2 MG FILM PACKET SL SCH (09:53)
[2017-08-14] MEDS: BENZTROPINE MESYLATE 1 MG TABLET (FP) PO SCH (09:53)
[2017-08-14] MEDS: NICOTINE 21 MG/24 HOURS TOPICAL PATCH TD SCH (09:54)
--- NOTE | 2017-08-14 12:37 | PN ---
[facility] Progress Note Note: PATIENT SEEN FOR INCREASED SEDATION AND LETHARGY. PATIENT REFUSED MORNING DOSE OF SUBOXONE STATING IT WAS TOO STRONG. DENIES CP, SOB AND DIZZINESS. PHYSICAL EXAM STABLE. AMBULATING IN [place] WITHOUT DEVICE. WILL DECREASE SUBOXONE TO 4MG BID AND CONTINUE TO MONITOR CLINICALLY. Vital Signs Temperature 98.0 F 08/14/17 06:45 Pulse Rate 69 08/14/17 06:45 Respiratory Rate 16 08/14/17 06:45 Blood Pressure 138/93 08/14/17 06:45 O2 Sat by Pulse Oximetry (%)
[2017-08-14] MEDS: THIAMINE HCL 100 MG TABLET (FP) PO SCH (21:17)
[2017-08-14] MEDS: QUEtiapine FUMARATE 200 MG TABLET PO SCH (21:17)
[2017-08-14] MEDS: BUPRENORPHINE/NALOXONE 2 MG/0.5 MG FILM PACKET SL SCH (21:17)
[2017-08-15] MEDS: SERTRALINE HCL 50 MG TABLET (FP) PO SCH (09:51)
[2017-08-15] MEDS: BENZTROPINE MESYLATE 1 MG TABLET (FP) PO SCH (09:51)
[2017-08-15] MEDS: PRENATAL VITAMINS W/ FOLIC ACID TABLET (FP) PO SCH (09:51)
[2017-08-15] MEDS: BUPRENORPHINE/NALOXONE 2 MG/0.5 MG FILM PACKET SL SCH ×2 (09:51→21:05)
[2017-08-15] MEDS: NICOTINE 21 MG/24 HOURS TOPICAL PATCH TD SCH (09:51)
[2017-08-15] MEDS: QUEtiapine FUMARATE 200 MG TABLET PO SCH (21:05)
[2017-08-15] MEDS: THIAMINE HCL 100 MG TABLET (FP) PO SCH (21:05)
[2017-08-16] MEDS: SERTRALINE HCL 50 MG TABLET (FP) PO SCH (10:12)
[2017-08-16] MEDS: BENZTROPINE MESYLATE 1 MG TABLET (FP) PO SCH (10:12)
[2017-08-16] MEDS: NICOTINE 21 MG/24 HOURS TOPICAL PATCH TD SCH (10:12)
[2017-08-16] MEDS: BUPRENORPHINE/NALOXONE 2 MG/0.5 MG FILM PACKET SL SCH (10:12)
[2017-08-16] MEDS: PRENATAL VITAMINS W/ FOLIC ACID TABLET (FP) PO SCH (10:12)
[2017-08-17] MEDS: THIAMINE HCL 100 MG TABLET (FP) PO SCH ×2 (00:20→21:07)
[2017-08-17] MEDS: QUEtiapine FUMARATE 200 MG TABLET PO SCH ×2 (00:20→21:07)
[2017-08-17] MEDS: BUPRENORPHINE/NALOXONE 2 MG/0.5 MG FILM PACKET SL SCH ×3 (00:20→21:07)
[2017-08-17] MEDS: IBUPROFEN 400 MG TABLET (FP) PO PRN (07:10)
[2017-08-17] MEDS: BENZTROPINE MESYLATE 1 MG TABLET (FP) PO SCH (09:47)
[2017-08-17] MEDS: SERTRALINE HCL 50 MG TABLET (FP) PO SCH (09:47)
[2017-08-17] MEDS: PRENATAL VITAMINS W/ FOLIC ACID TABLET (FP) PO SCH (09:47)
[2017-08-17] MEDS: NICOTINE 21 MG/24 HOURS TOPICAL PATCH TD SCH (09:48)
[2017-08-18] MEDS: BUPRENORPHINE/NALOXONE 2 MG/0.5 MG FILM PACKET SL SCH ×2 (09:54→21:09)
[2017-08-18] MEDS: PRENATAL VITAMINS W/ FOLIC ACID TABLET (FP) PO SCH (09:54)
[2017-08-18] MEDS: SERTRALINE HCL 50 MG TABLET (FP) PO SCH (09:54)
[2017-08-18] MEDS: BENZTROPINE MESYLATE 1 MG TABLET (FP) PO SCH (09:54)
[2017-08-18] MEDS: NICOTINE 21 MG/24 HOURS TOPICAL PATCH TD SCH (09:54)
[2017-08-18] MEDS: QUEtiapine FUMARATE 200 MG TABLET PO SCH (21:09)
[2017-08-18] MEDS: THIAMINE HCL 100 MG TABLET (FP) PO SCH (21:09)
[2017-08-19] MEDS: IBUPROFEN 400 MG TABLET (FP) PO PRN (06:12)
[2017-08-19] MEDS: BENZTROPINE MESYLATE 1 MG TABLET (FP) PO SCH (09:51)
[2017-08-19] MEDS: SERTRALINE HCL 50 MG TABLET (FP) PO SCH (09:51)
[2017-08-19] MEDS: BUPRENORPHINE/NALOXONE 2 MG/0.5 MG FILM PACKET SL SCH ×2 (09:51→21:09)
[2017-08-19] MEDS: PRENATAL VITAMINS W/ FOLIC ACID TABLET (FP) PO SCH (09:51)
[2017-08-19] MEDS: NICOTINE 21 MG/24 HOURS TOPICAL PATCH TD SCH (09:52)
[2017-08-19] MEDS: QUEtiapine FUMARATE 200 MG TABLET PO SCH (21:09)
[2017-08-19] MEDS: THIAMINE HCL 100 MG TABLET (FP) PO SCH (21:09)
[2017-08-20] MEDS: SERTRALINE HCL 50 MG TABLET (FP) PO SCH (10:04)
[2017-08-20] MEDS: PRENATAL VITAMINS W/ FOLIC ACID TABLET (FP) PO SCH (10:04)
[2017-08-20] MEDS: NICOTINE 21 MG/24 HOURS TOPICAL PATCH TD SCH (10:04)
[2017-08-20] MEDS: BENZTROPINE MESYLATE 1 MG TABLET (FP) PO SCH (10:05)
[2017-08-20] MEDS: BUPRENORPHINE/NALOXONE 2 MG/0.5 MG FILM PACKET SL SCH ×2 (10:05→21:16)
--- NOTE | 2017-08-20 13:37 | PN ---
[facility] Progress Note Note: Vital Signs Temperature 98.0 F 08/20/17 06:24 Pulse Rate 75 08/20/17 06:24 Respiratory Rate 16 08/20/17 06:24 Blood Pressure 120/69 08/20/17 06:24 O2 Sat by Pulse Oximetry (%) Patient c/o of shakes, dry skin, pain on both plantar aspects of both feet, sweating chills, abdominal pain . Patient reports hx of constipation with BM for seven days last this AM with relieved the pain. Patient currently on suboxone therapy. A/P Patient AOX3, no distress s1, s2 no JVD lungs clear throughout Protuberant abdomen, BS x4, non-tender, non-distended, no guarding + diaphoresis + tremors b/t upper extremities + callus both feet + body aches - withdrawal syndrome - dandruff - callus - constipation Plan: A&D oint top b/t lower extremities increase fluids continue suboxone flexeril 5 mg tid continue to monitor
[2017-08-20] MEDS: CYCLOBENZAPRINE HCL 5 MG TABLET PO SCH ×2 (14:42→21:16)
[2017-08-20] MEDS: DOCUSATE SODIUM 100 MG CAPSULE (FP) PO SCH ×2 (14:43→21:16)
[2017-08-20] MEDS: VITAMINS A AND D TOPICAL OINTMENT 60 GM TUBE TP SCH ×2 (14:43→21:17)
[2017-08-20] MEDS: QUEtiapine FUMARATE 200 MG TABLET PO SCH (21:16)
[2017-08-20] MEDS: THIAMINE HCL 100 MG TABLET (FP) PO SCH (21:16)
[2017-08-21] MEDS: CYCLOBENZAPRINE HCL 5 MG TABLET PO SCH ×3 (06:42→21:12)
[2017-08-21] MEDS: DOCUSATE SODIUM 100 MG CAPSULE (FP) PO SCH ×3 (06:42→21:12)
[2017-08-21] MEDS: BENZTROPINE MESYLATE 1 MG TABLET (FP) PO SCH (09:52)
[2017-08-21] MEDS: SERTRALINE HCL 50 MG TABLET (FP) PO SCH (09:52)
[2017-08-21] MEDS: NICOTINE 21 MG/24 HOURS TOPICAL PATCH TD SCH (09:53)
[2017-08-21] MEDS: SELENIUM SULFIDE 2.5% LOTION 4 OZ. TP SCH (09:53)
[2017-08-21] MEDS: PRENATAL VITAMINS W/ FOLIC ACID TABLET (FP) PO SCH (09:53)
[2017-08-21] MEDS: VITAMINS A AND D TOPICAL OINTMENT 60 GM TUBE TP SCH ×2 (09:55→21:13)
[2017-08-21] MEDS: BUPRENORPHINE/NALOXONE 2 MG/0.5 MG FILM PACKET SL SCH ×2 (10:42→21:12)
[2017-08-21] MEDS: QUEtiapine FUMARATE 200 MG TABLET PO SCH (21:11)
[2017-08-21] MEDS: THIAMINE HCL 100 MG TABLET (FP) PO SCH (21:12)
[2017-08-22] MEDS: CYCLOBENZAPRINE HCL 5 MG TABLET PO SCH ×3 (06:22→21:18)
[2017-08-22] MEDS: DOCUSATE SODIUM 100 MG CAPSULE (FP) PO SCH ×3 (06:22→21:18)
[2017-08-22] MEDS: BUPRENORPHINE/NALOXONE 2 MG/0.5 MG FILM PACKET SL SCH ×2 (09:58→21:18)
[2017-08-22] MEDS: PRENATAL VITAMINS W/ FOLIC ACID TABLET (FP) PO SCH (09:59)
[2017-08-22] MEDS: SERTRALINE HCL 50 MG TABLET (FP) PO SCH (09:59)
[2017-08-22] MEDS: BENZTROPINE MESYLATE 1 MG TABLET (FP) PO SCH (09:59)
[2017-08-22] MEDS: SELENIUM SULFIDE 2.5% LOTION 4 OZ. TP SCH (09:59)
[2017-08-22] MEDS: NICOTINE 21 MG/24 HOURS TOPICAL PATCH TD SCH (09:59)
[2017-08-22] MEDS: VITAMINS A AND D TOPICAL OINTMENT 60 GM TUBE TP SCH ×2 (09:59→21:19)
[2017-08-22] MEDS: QUEtiapine FUMARATE 200 MG TABLET PO SCH (21:18)
[2017-08-22] MEDS: THIAMINE HCL 100 MG TABLET (FP) PO SCH (21:18)
[2017-08-23] MEDS: CYCLOBENZAPRINE HCL 5 MG TABLET PO SCH ×3 (06:18→21:08)
[2017-08-23] MEDS: DOCUSATE SODIUM 100 MG CAPSULE (FP) PO SCH ×3 (06:18→21:08)
[2017-08-23] MEDS: PRENATAL VITAMINS W/ FOLIC ACID TABLET (FP) PO SCH (10:03)
[2017-08-23] MEDS: SERTRALINE HCL 50 MG TABLET (FP) PO SCH (10:03)
[2017-08-23] MEDS: NICOTINE 21 MG/24 HOURS TOPICAL PATCH TD SCH (10:03)
[2017-08-23] MEDS: BENZTROPINE MESYLATE 1 MG TABLET (FP) PO SCH (10:03)
[2017-08-23] MEDS: VITAMINS A AND D TOPICAL OINTMENT 60 GM TUBE TP SCH ×2 (10:05→21:09)
[2017-08-23] MEDS: SELENIUM SULFIDE 2.5% LOTION 4 OZ. TP SCH (10:05)
[2017-08-23] MEDS: BUPRENORPHINE/NALOXONE 2 MG/0.5 MG FILM PACKET SL SCH ×2 (10:20→21:08)
[2017-08-23] MEDS: THIAMINE HCL 100 MG TABLET (FP) PO SCH (21:08)
[2017-08-23] MEDS: QUEtiapine FUMARATE 200 MG TABLET PO SCH (21:08)
[2017-08-24] MEDS: CYCLOBENZAPRINE HCL 5 MG TABLET PO SCH ×3 (06:54→21:08)
[2017-08-24] MEDS: DOCUSATE SODIUM 100 MG CAPSULE (FP) PO SCH ×3 (06:54→21:08)
[2017-08-24] MEDS: BENZTROPINE MESYLATE 1 MG TABLET (FP) PO SCH (10:25)
[2017-08-24] MEDS: SERTRALINE HCL 50 MG TABLET (FP) PO SCH (10:25)
[2017-08-24] MEDS: PRENATAL VITAMINS W/ FOLIC ACID TABLET (FP) PO SCH (10:25)
[2017-08-24] MEDS: NICOTINE 21 MG/24 HOURS TOPICAL PATCH TD SCH (10:25)
[2017-08-24] MEDS: SELENIUM SULFIDE 2.5% LOTION 4 OZ. TP SCH (10:26)
[2017-08-24] MEDS: BUPRENORPHINE/NALOXONE 2 MG/0.5 MG FILM PACKET SL SCH ×2 (10:28→21:09)
[2017-08-24] MEDS: VITAMINS A AND D TOPICAL OINTMENT 60 GM TUBE TP SCH ×2 (10:28→21:09)
[2017-08-24] MEDS: THIAMINE HCL 100 MG TABLET (FP) PO SCH (21:08)
[2017-08-24] MEDS: QUEtiapine FUMARATE 200 MG TABLET PO SCH (21:10)
[2017-08-25] MEDS: DOCUSATE SODIUM 100 MG CAPSULE (FP) PO SCH ×3 (06:59→21:21)
[2017-08-25] MEDS: CYCLOBENZAPRINE HCL 5 MG TABLET PO SCH ×3 (06:59→21:21)
[2017-08-25] MEDS: BENZTROPINE MESYLATE 1 MG TABLET (FP) PO SCH (10:14)
[2017-08-25] MEDS: PRENATAL VITAMINS W/ FOLIC ACID TABLET (FP) PO SCH (10:14)
[2017-08-25] MEDS: BUPRENORPHINE/NALOXONE 2 MG/0.5 MG FILM PACKET SL SCH ×2 (10:15→21:21)
[2017-08-25] MEDS: NICOTINE 21 MG/24 HOURS TOPICAL PATCH TD SCH (10:15)
[2017-08-25] MEDS: SELENIUM SULFIDE 2.5% LOTION 4 OZ. TP SCH (10:15)
[2017-08-25] MEDS: VITAMINS A AND D TOPICAL OINTMENT 60 GM TUBE TP SCH ×2 (10:15→22:05)
[2017-08-25] MEDS: SERTRALINE HCL 50 MG TABLET (FP) PO SCH (10:15)
[2017-08-25] MEDS: QUEtiapine FUMARATE 200 MG TABLET PO SCH (21:21)
[2017-08-25] MEDS: THIAMINE HCL 100 MG TABLET (FP) PO SCH (21:21)
[2017-08-26] MEDS: DOCUSATE SODIUM 100 MG CAPSULE (FP) PO SCH ×3 (06:14→21:01)
[2017-08-26] MEDS: CYCLOBENZAPRINE HCL 5 MG TABLET PO SCH ×3 (06:14→21:01)
[2017-08-26] MEDS: BENZTROPINE MESYLATE 1 MG TABLET (FP) PO SCH (09:40)
[2017-08-26] MEDS: SERTRALINE HCL 50 MG TABLET (FP) PO SCH (09:40)
[2017-08-26] MEDS: PRENATAL VITAMINS W/ FOLIC ACID TABLET (FP) PO SCH (09:40)
[2017-08-26] MEDS: NICOTINE 21 MG/24 HOURS TOPICAL PATCH TD SCH (09:41)
[2017-08-26] MEDS: SELENIUM SULFIDE 2.5% LOTION 4 OZ. TP SCH (09:41)
[2017-08-26] MEDS: VITAMINS A AND D TOPICAL OINTMENT 60 GM TUBE TP SCH ×2 (09:41→21:01)
[2017-08-26] MEDS: BUPRENORPHINE/NALOXONE 2 MG/0.5 MG FILM PACKET SL SCH ×2 (09:41→21:01)
[2017-08-26] MEDS: QUEtiapine FUMARATE 200 MG TABLET PO SCH (21:00)
[2017-08-26] MEDS: THIAMINE HCL 100 MG TABLET (FP) PO SCH (21:01)
[2017-08-27] MEDS: DOCUSATE SODIUM 100 MG CAPSULE (FP) PO SCH ×3 (06:23→21:03)
[2017-08-27] MEDS: CYCLOBENZAPRINE HCL 5 MG TABLET PO SCH ×3 (06:23→21:03)
[2017-08-27 06:37] VITALS: PULSE 54; TEMP 97.9
[2017-08-27] MEDS: BENZTROPINE MESYLATE 1 MG TABLET (FP) PO SCH (09:46)
[2017-08-27] MEDS: SELENIUM SULFIDE 2.5% LOTION 4 OZ. TP SCH (09:46)
[2017-08-27] MEDS: PRENATAL VITAMINS W/ FOLIC ACID TABLET (FP) PO SCH (09:46)
[2017-08-27] MEDS: BUPRENORPHINE/NALOXONE 2 MG/0.5 MG FILM PACKET SL SCH ×2 (09:46→21:03)
[2017-08-27] MEDS: NICOTINE 21 MG/24 HOURS TOPICAL PATCH TD SCH (09:46)
[2017-08-27] MEDS: VITAMINS A AND D TOPICAL OINTMENT 60 GM TUBE TP SCH ×2 (09:48→21:03)
[2017-08-27] MEDS: SERTRALINE HCL 50 MG TABLET (FP) PO SCH (10:46)
[2017-08-27] MEDS: QUEtiapine FUMARATE 200 MG TABLET PO SCH (21:03)
[2017-08-27] MEDS: THIAMINE HCL 100 MG TABLET (FP) PO SCH (21:03)
[2017-08-28] MEDS: CYCLOBENZAPRINE HCL 5 MG TABLET PO SCH ×2 (06:09→14:36)
[2017-08-28] MEDS: DOCUSATE SODIUM 100 MG CAPSULE (FP) PO SCH ×2 (06:09→14:36)
[2017-08-28 06:58] VITALS: BP 118/68
[2017-08-28] MEDS: PRENATAL VITAMINS W/ FOLIC ACID TABLET (FP) PO SCH (09:42)
[2017-08-28] MEDS: NICOTINE 21 MG/24 HOURS TOPICAL PATCH TD SCH (09:42)
[2017-08-28] MEDS: BENZTROPINE MESYLATE 1 MG TABLET (FP) PO SCH (09:42)
[2017-08-28] MEDS: SERTRALINE HCL 50 MG TABLET (FP) PO SCH (09:42)
[2017-08-28] MEDS: BUPRENORPHINE/NALOXONE 2 MG/0.5 MG FILM PACKET SL SCH (09:43)
[2017-08-28] MEDS: VITAMINS A AND D TOPICAL OINTMENT 60 GM TUBE TP SCH (09:43)
--- NOTE | 2017-08-28 18:33 | PN ---
S Progress Note Note: Call from RN on regarding discharge order.Patient partially met his goals and decided to sign out today.He will continue to address his issues on outpatient basis.Patient is stable for discharge today.
== END 2017-08-28 18:45 | disposition home or self-care (01) | DRG 279 ==
LOC: YASAS 14:46 → Y5N 14:47
PROVIDERS: ADMIT Psychiatry & Neurology Psychiatry; ATTEND Psychiatry & Neurology Psychiatry
PROC: HZ42ZZZ Group Counseling for Substance Abuse Treatment, Cognitive-Behavioral (ICD-10-PCS; principal; 2017-08-11)
DX: B18.2 Chronic viral hepatitis C (principal); F11.23 Opioid dependence with withdrawal; F10.20 Alcohol dependence, uncomplicated; F14.20 Cocaine dependence, uncomplicated; F33.9 Major depressive disorder, recurrent, unspecified; F19.24 Other psychoactive substance dependence with psychoactive substance-induced mood disorder; L84 Corns and callosities; R45.89 Other symptoms and signs involving emotional state; K59.00 Constipation, unspecified